=== PATIENT | male | born 1995 | race Caucasian/White ===

== ENCOUNTER → 2020-02-15 13:01 | Outpatient (BNVA) | payer BC, SELFPAY | PROVIDERS: Visit Provider Emergency Medicine | DX: Z20.828 Contact with and (suspected) exposure to other viral communicable diseases (principal) | CPT/HCPCS: 87635 ==

== ENCOUNTER → 2020-02-18 13:48 | Outpatient (BNVA) | payer BC, SELFPAY | PROVIDERS: Visit Provider Psychiatry & Neurology Psychiatry | DX: F41.1 Generalized anxiety disorder (principal); F33.2 Major depressive disorder, recurrent severe without psychotic features | CPT/HCPCS: 99204 ==

== ENCOUNTER → 2020-03-21 08:48 | Outpatient (BNVA) | payer BC, SELFPAY | PROVIDERS: Visit Provider Psychiatry & Neurology Psychiatry | DX: F33.2 Major depressive disorder, recurrent severe without psychotic features (principal); F41.1 Generalized anxiety disorder | CPT/HCPCS: 99214 ==

== ENCOUNTER → 2020-05-09 09:54 | Outpatient (BNVA) | payer OTHER, SELFPAY | PROVIDERS: Visit Provider Psychiatry & Neurology Psychiatry | DX: F33.2 Major depressive disorder, recurrent severe without psychotic features (principal); F41.1 Generalized anxiety disorder | CPT/HCPCS: 99213 ==

== ENCOUNTER → 2020-05-20 11:19 | Outpatient (BNVA) | payer OTHER, SELFPAY | PROVIDERS: PCP Physician Assistant Medical; Referring Provider Physician Assistant Medical; Visit Provider Specialist | DX: G25.0 Essential tremor (principal); R33.9 Retention of urine, unspecified; F33.2 Major depressive disorder, recurrent severe without psychotic features; F41.1 Generalized anxiety disorder | CPT/HCPCS: 99204 ==

== ENCOUNTER → 2020-10-07 14:07 | Outpatient (BNVA) | payer OTHER, SELFPAY | PROVIDERS: PCP Physician Assistant Medical; Visit Provider Specialist | DX: G25.0 Essential tremor (principal); R13.10 Dysphagia, unspecified; H53.2 Diplopia; G43.711 Chronic migraine without aura, intractable, with status migrainosus; F33.2 Major depressive disorder, recurrent severe without psychotic features; F41.1 Generalized anxiety disorder; Z77.011 Contact with and (suspected) exposure to lead | CPT/HCPCS: 99215 ==

== ENCOUNTER 2020-10-24 14:54 | Outpatient (CLI) | payer OTHER, SELFPAY ==
--- NOTE | 2020-10-24 15:15 | MR_ITS ---
WS: [id number] MRI BRAIN WITHOUT CONTRAST HISTORY: G25.0 - Essential tremor COMPARISON: None available. TECHNIQUE: Diffusion imaging, multiplanar T1, T2 and FLAIR imaging obtained. No evidence for acute infarct or hemorrhage. Avila-white matter differentiation is normal. No remote or acute infarcts are volume loss. Ventricles and extra-axial spaces are normal. No inferior displacement of cerebellar tonsils. The sella turcica and pituitary gland are unremarkabl e. CSF collection in the posterior cerebellum consistent with a retrocerebellar arachnoid cyst. Cyst ext ends over length of 4 cm x 3.1 cm. Very slight mass effect upon the cerebellum. The vermis is present . Dural venous sinuses and platinum of Gudino demonstrate no abnormality on this unenhanced studies. Paranasal sinuses: Clear. Mastoid air cells: Normal. Calvarium and scalp: Intact. MR/MR head wo con* [id number] IMPRESSION: 1. No acute infarct. 2. Retrocerebellar arachnoid cyst. 3. No prior infarcts or ischemic disease.
== END 2020-10-24 14:55 | disposition home or self-care (01) ==
PROVIDERS: PCP Physician Assistant Medical; Visit Provider Specialist
DX: G25.0 Essential tremor (principal); G93.0 Cerebral cysts
CPT/HCPCS: 70551

== ENCOUNTER → 2020-11-24 14:27 | Outpatient (BNVA) | payer OTHER, SELFPAY | PROVIDERS: PCP Physician Assistant Medical; Visit Provider Internal Medicine | DX: Z01.812 Encounter for preprocedural laboratory examination (principal); R13.10 Dysphagia, unspecified; Z20.822 Contact with and (suspected) exposure to COVID-19 | CPT/HCPCS: 87635 ==

== ENCOUNTER 2020-11-28 08:36 | Day surgery (SDC) | payer OTHER, SELFPAY ==
[2020-11-26 11:06] VITALS: BMI 27.8
--- NOTE | 2020-11-28 08:50 | P.ANESASSM_ITS ---
Pre-Anesthetic Assessment Pre-Anesthetic Assessment: Height/Weight: Height 1.8 m Weight 90.718 kg Preop Diagnosis: Stricture Proposed Procedure: Operation Date: 11/28/20 10:00 Proposed Procedures p EGD Dilation W/ Paige [id number] R13.10(Not Applicable) - Joe Castorena MD Familial anesthetic complications: None Was Beta Ele taken within 24 hours: N/A Was Clonidine taken within 24 hours: N/A Last intake: > 8 hrs Social: Social History: No alcohol and No tobacco Exam: Pre-Anes Outpt Exam: alert, oriented x 3, clear to auscultation bilaterally and regular rate & rhythm Airway: Cervical ROM: WNL MP: 1 Dentition: Full Pulmonary: Pulmonary: Asthma (inhaler once every couple of weeks) Neuropsych: Comments: essential tremor Anesthetic Plan: ASA status: 2 Anesthesia: MAC Risk of > 500 ml blood lo ss (7ml/kg in children): No PFSH Anesthesia PFSH: Medical History Urinary retention Family History Mother Non-Hodgkin lymphoma Grandmother Diabetes Social History Smoking and tobacco status: never smoked History of recent travel: No Data Anesthesia Cardiac Studies: No Data to Display
[2020-11-28 09:15] VITALS: BP 120/72; PULSE 67; RESP 16; TEMP 36.2; O2SAT 99
[2020-11-28] MEDS: sodium chloride 0.9% 1,000 ML 30 ML IV (09:28)
--- NOTE | 2020-11-28 09:40 | P.HP_ITS ---
Same Day Surgery H&P Indication for Procedure/HPI DATE OF PROCEDURE: November 28, 2020 CHIEF COMPLAINT/INDICATIONFOR SURGICAL PROCEDURE: Dysphagia PREOP DIAGNOSIS: Dysphagia PLANNED PROCEDRUE: Operation Date: 11/28/20 10:00 Proposed Procedures p EGD Dilation W/ Bougie [id number] R13.10(Not Applicable) - Joe Castorena MD Medications/Allergies* Home Medications Medication Instructions Recorded Confirmed Type albuterol sulfate 90 mcg/actuation 2 puff INHALATION 6XD PRN 05/20/20 11/28/20 History aerosol inhaler cholecalciferol (vitamin D3) 50 50 mcg PO DAILY 05/20/20 11/28/20 History mcg (2,000 unit) capsule vitamin B complex 1 tab PO DAILY 05/20/20 11/28/20 History meloxicam 15 mg PO DAILY 11/26/20 11/28/20 History propranolol 10 mg PO BID 11/28/20 11/28/20 History Allergies/Adverse Reactions Allergy/AdvReac Type Severity Reaction Status Date / Time gabapentin AdvReac Intermediate Gave Verified 11/28/20 09:12 double vision Current Medications: Generic Name Dose Route Start Last Admin Trade Name Freq PRN Reason Stop Dose Admin Sodium Chloride 1,000 mls @ 30 mls/hr 11/28/20 09:15 11/28/20 09:28 Sodium Chloride 0.9% IV 30 mls/hr .Q24H RAJENDRA Administration Pertinent History/Comorbid Conditions* Medical History (Updated 11/17/20 @ 14:46 by Joe Castorena MD) Urinary retention Family History (Updated 05/20/20 @ 12:42 by Candis Foley LPN) Diabetes Grandmother Non-Hodgkin lymphoma Mother Social History Smoking and tobacco status: never smoked History of recent travel: No Pertinent Exam Findings alert, oriented x 3, clear to auscultation bilaterally, regular rate & rhythm, operative site marked and procedure specific exam findings Recommendations Surgery/Procedure today Coding Level of Care Code Acute Personnel Placement Specialist for Nohelia Lau
[2020-11-28 10:37] VITALS: BP 103/53; PULSE 65; RESP 16; TEMP 36.6; O2SAT 96
[2020-11-28 10:48] VITALS: BP 106/70; PULSE 70; RESP 16; O2SAT 99
--- NOTE | 2020-11-28 18:22 | ANE.PACU2 ---
Inpatient post-anesthesia follow up: Airway intact: Yes Vital signs: Temperature 97.8 F Pulse Rate 70 Respiratory Rate 16 Blood Pressure 106/70 Pulse Oximetry 99 Oxygen Delivery Me thod Room Air Oxygen Flow Rate 3 Fraction of Inspir ed Oxygen Hydration adequate: Yes Nausea and vomiting: No Pain level: 2 Mental status: Baseline
[2020-11-29 09:03] LABS: H. Pylori / CLO Test Negative
== END 2020-11-28 11:15 | disposition home or self-care (01) ==
PROVIDERS: PCP Physician Assistant Medical; Visit Provider Internal Medicine
DX: R13.10 Dysphagia, unspecified (principal); K21.00 Gastro-esophageal reflux disease with esophagitis, without bleeding; K20.90 Esophagitis, unspecified without bleeding; K29.70 Gastritis, unspecified, without bleeding; K29.80 Duodenitis without bleeding
CPT/HCPCS: 43239; 87077; 96360; J2704; J7030

== ENCOUNTER → 2021-01-07 12:21 | Outpatient (BNVA) | payer OTHER, SELFPAY | PROVIDERS: PCP Physician Assistant Medical; Visit Provider Specialist | DX: G43.711 Chronic migraine without aura, intractable, with status migrainosus (principal); G93.0 Cerebral cysts | CPT/HCPCS: 99214 ==

== ENCOUNTER → 2021-02-10 14:07 | Outpatient (BNVA) | payer OTHER, SELFPAY | PROVIDERS: PCP Physician Assistant Medical; Visit Provider Nurse Practitioner Family | DX: Z20.822 Contact with and (suspected) exposure to COVID-19 (principal) | CPT/HCPCS: 87635 ==

== ENCOUNTER 2021-09-22 07:00 | Outpatient (CLI) | payer BC, SELFPAY ==
--- NOTE | 2021-09-22 07:15 | MR_ITS ---
WS: [id number] MRA HEAD TECHNIQUE: Axial 3-D TOF images obtained with axial images and axial, sagittal, and coronal 2-D refor matted images. CLINICAL INFORMATION: SUDDEN ONSET OF SEVERE HEADACHE COMPARISON: MRI October 24, 2020 FINDINGS: Basilar artery is patent. Persistent RIGHT FARM LOAN REPRESENTATIVE. Normal vascularity to the FARM LOAN REPRESENTATIVE territory bilater ally. Both ICAs are patent at the skull base. Normal vascularity to the JESSICA and MCA territories bilaterally . Patent anterior communicating artery. No evidence of flow-limiting stenosis or aneurysm. MR/MR angio head wo con [id number] IMPRESSION: 1. Normal intracranial MRA. 2. No evidence of flow-limiting stenosis or aneurysm. 3. Normal variant Persistent RIGHT FARM LOAN REPRESENTATIVE.
== END 2021-09-22 07:01 | disposition home or self-care (01) ==
LOC: RAD 07:00
PROVIDERS: PCP Nurse Practitioner Family; Visit Provider Specialist
DX: R51.9 Headache, unspecified (principal)
CPT/HCPCS: 70544